=== PATIENT | male | born 1995 ===

== ENCOUNTER 2017-08-13 08:26 | Day surgery (SDC) | payer OTHER ==
[~2017-08-13 08:26] MED LIST: Buffered Lidocaine 0.9% SYRIN* 5 ML/SYR SYRINGE INTRADERM ONE; Bupivacaine 0.25% SDV* 30 ML ONE; Dexamethasone IV* 4 MG/ML 1 ML (4 MG) IV SLOW PU ONE; Dexamethasone IV* 4 MG/ML 1 ML (4 MG) ONE; Famotidine IV* 10 MG/ML 2 ML (20 mg) IV ONE; Famotidine IV* 10 MG/ML 2 ML (20 mg) ONE; ceFAZolin 2 GM PREMIX (*) 2 GM/50 ML BAG IVPB ONE
[2017-08-13] MEDS ORDERED: Naloxone* 0.4 MG/ML 1 ML VIAL IV PRN (09:25)
[2017-08-13] MEDS ORDERED: oxyCODONE/Acetamin 5/325 MG* TAB PO PRN (09:25)
[2017-08-13] MEDS ORDERED: Ketorolac INJ* 30 MG/ML 1 ML VIAL IV PRN (09:25)
[2017-08-13] MEDS ORDERED: fentaNYL* 50 MCG/ML 2 ML VIAL (100 MCG VIAL) IV PRN (09:25)
[2017-08-13] MEDS ORDERED: DiMENhydriNATE IV* 50 MG/ML VIAL IV PUSH PRN (09:25)
[2017-08-13] MEDS ORDERED: HYDROcodone/ACETAMIN 5-325 MG* 1 TAB PO PRN (09:25)
[2017-08-13] MEDS ORDERED: fentaNYL* 50 MCG/ML 2 ML VIAL (100 MCG VIAL) ONE ×2 (09:39→12:13)
[2017-08-13] MEDS ORDERED: Midazolam* 1 MG/ML 5 ML VIAL (5 MG) ONE (09:39)
[2017-08-13] MEDS ORDERED: Propofol* 10 MG/ML 20 ML BTL IV PUSH ONE (09:40)
[2017-08-13] MEDS ORDERED: Lidocaine 2% PF * 5 ML VIAL ONE (09:40)
[2017-08-13] MEDS ORDERED: PROCHLORPERAZINE INJ 5 MG/ML 2 ML VIAL ONE (11:12)
[2017-08-13 13:44] VITALS: BP 162/88
--- NOTE | 2017-08-14 10:37 | RAD ---
INDICATION: Right wrist. No other history is provided. COMPARISONS: None relevant TECHNIQUE: Fluoroscopy was provided for a surgical procedure. Total fluoroscopy time is: 4 seconds FINDINGS: A single spot image demonstrates surgical instruments overlying the wrist. IMPRESSION: FLUOROSCOPY WAS PROVIDED FOR A SURGICAL PROCEDURE CPT II Codes: G9500
--- NOTE | 2017-08-14 12:45 | OP ---
DATE OF OPERATION: 08/13/17 [facility] DATE OF : [birth year] SURGEON: Kaden Hernández MD MOLD PREPARER: AMANDEEP Manzanares ANESTHESIOLOGIST: Dr. Ghosh. ANESTHESIA: General. PRE-OP DIAGNOSES: 1. Right wrist loose body. 2. Right wrist triangular fibrocartilage complex peripheral tear. POST-OP DIAGNOSES: 1. Right wrist loose body. 2. Right wrist triangular fibrocartilage complex peripheral tear. 3. 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 4. Complete lunotriquetral ligament tear with the tear off of the triquetrum and intercarpal instability. OPERATIVE PROCEDURE: 1. Diagnostic right wrist arthroscopy with debridement and partial synovectomy. 2. Excision of right wrist loose body. 3. Repair of the right triangular fibrocartilage complex with reattachment of the foveal fibers to the ulna. INDICATION: Charly is having a lot of right wrist pain. He did have a boxer' s fracture around the time that this all started, other than that he does not recall a traumatic event. He does have a history of boxing. The pain comes and goes throughout the day. It will wake him up at times at night. The pain is ulnar sided. X-ray showed a large ossicle in the ulnar side of the wrist. MRI confirmed disruption of the deep foveal fibers. ESTIMATED BLOOD LOSS: 2 mL. COMPLICATIONS: None. FINDINGS: See above and below. DESCRIPTION OF PROCEDURE: Charly was seen in the preoperative holding area. The correct site, side, and procedure were identified. We came back to the operating room. The arm was prepped and draped in the usual fashion. A time- out was performed. The arm was placed in the Acumed traction tower and exsanguinated with the Esmarch and the tourniquet inflated to 250 mmHg. I developed a 3-4 portal in standard fashion. Radial styloid and radiocarpal ligaments looked good. Immediately present was a large scapholunate interosseous ligament tear off of the scaphoid. There was a step-off at the scaphoid and lunate. The lunate was sitting more proximal than the scaphoid. When I balloted the scaphoid, there was complete instability and no connection between the scaphoid and the lunate whatsoever. There was a lot of dorsal synovitis. I developed a 6R portal and brought in the shaver and excised the dorsal synovitis. I still could not get the camera ulnar as still the lunate was sitting subluxated proximally. I then created a 4-5 portal and put the camera in the 4-5 portal. The TFCC was sitting at a very steep incline and it was apparent that the foveal attachment was disrupted. The ossicle was not seen as it was sitting deep to the TFCC. I brought in the radiofrequency ablator and cleaned up the loose edges of the scapholunate and lunotriquetral ligaments. Once I had debrided them back to stable edges, I excised all the synovitis with the shaver. At this point, I could do nothing more arthroscopically. I already knew there was complete instability of the scapholunate and lunotriquetral joints and so I did not see any point developing midcarpal portal, so at that point we were done with the arthroscopic portion of the procedure. I then made an incision just radial to the distal radial ulnar joint longitudinally incorporating the 4-5 portal. Dissection was carried down. The retinaculum was released. The EDM tendon was transposed. The DRUJ arthrotomy was made. I then teed this back transversely just proximal to the TFCC and then again distal to the TFCC. Capsular flaps were raised. The C-arm was used to identify the ossicle sitting deep to the TFCC. This was ellipsed out with a [place] blade and once it was completely removed, I handed off the specimen. The foveal fibers were all completely detached. At this point, I went ahead and mobilized the TFCC. I preserved the ECU subsheath. Once I had it mobilized and placed 1 Mini Mitek suture anchor in the fovea. D2 Ethibond suture was then sewn up into the TFCC and the DRUJ was placed in the reduced position and the suture was tied off brining the TFCC down to the fovea. Once I had repaired the TFCC, I took some 4-0 Ethibond suture and closed my capsular flaps and sewed them back to the TFCC. The DRUJ arthrotomy was closed. The EDM tendon was left transposed and the retinaculum was closed with 4-0 Ethibond suture. Skin was closed with 4-0 Monocryl and Steri-Strips. The portal sites of each were closed with a 4-0 Monocryl simple interrupted stitch. The Marcaine was infiltrated. The wounds were dressed. A sugar-tong splint was applied. The tourniquet was deflated and the hand pinked up immediately. He was then woken up and taken to the recovery room in stable condition. [id number]/[facility] #: [id number] JENNIFER
== END 2017-08-13 14:00 ==
LOC: OREAST 08:26
PROVIDERS: ATTEND Orthopaedic Surgery Hand Surgery
DX: M24.831 Other specific joint derangements of right wrist, not elsewhere classified (principal); M25.531 Pain in right wrist; Z87.891 Personal history of nicotine dependence
CPT/HCPCS: 76000; 88304; 88311; C1713; J0690; J0780; J1100; J2250; J2704; J3010